=== PATIENT | male | born 1965 | race Caucasian/White ===

== ENCOUNTER 2023-04-10 22:50 | Emergency (ER) | payer BC ==
[2023-04-10] MEDS ORDERED: Sodium Chloride 0.9% 10 ML Syringe FLUSH PRN (23:11)
[2023-04-10] MEDS ORDERED: Ketorolac 30 MG/ML SDV IM ONE (23:24)
[2023-04-10] MEDS ORDERED: Cyclobenzaprine 10 MG Tab PO ONE (23:24)
[2023-04-10] MEDS ORDERED: methylPREDNISolone Sodium Succinate 125 MG/2 ML SDV IM ONE (23:25)
== END 2023-04-10 23:58 | disposition home or self-care (01) ==
LOC: KA.ED 22:50
DX: S16.1XXA Strain of muscle, fascia and tendon at neck level, initial encounter (principal); X50.9XXA Other and unspecified overexertion or strenuous movements or postures, initial encounter
CPT/HCPCS: 96372; 99283; 99283-25; A9270-GY; J1885; J2930

== ENCOUNTER 2024-02-23 08:59 | Day surgery (SDC) | payer BC ==
[2024-02-23] MEDS: Lactated Ringers 1,000 ML ONE (09:22)
[2024-02-23] MEDS ORDERED: Propofol 200 MG/20 ML SDV ONE (10:18)
[2024-02-23] MEDS ORDERED: Midazolam 1 MG/ML 2 ML SDV ONE (10:18)
[2024-02-23] MEDS ORDERED: Lactated Ringers 1,000 ML IV SCH (11:15)
[2024-02-23] MEDS ORDERED: Sodium Chloride 0.9% 10 ML Syringe FLUSH PRN (11:15)
[2024-02-23] MEDS: Lactated Ringers 1,000 ML IV SCH (11:21)
== END 2024-02-23 12:29 | disposition home or self-care (01) ==
LOC: KA.SDS 08:59
PROVIDERS: ATTEND Surgery
DX: Z12.11 Encounter for screening for malignant neoplasm of colon (principal); D12.3 Benign neoplasm of transverse colon; D12.2 Benign neoplasm of ascending colon; K64.9 Unspecified hemorrhoids; E78.00 Pure hypercholesterolemia, unspecified; Z79.899 Other long term (current) drug therapy
CPT/HCPCS: 00811; J2250; J2704; J3490; J7120